=== PATIENT | male | born 1995 | race Hispanic/Latino ===

== ENCOUNTER 2019-08-04 12:48 | Emergency (ER) | payer OTHER | END 2019-08-04 14:51 | disposition home or self-care (01) | LOC: EDH 12:48 | DX: M25.511 Pain in right shoulder (principal) | CPT/HCPCS: 73030 ==

== ENCOUNTER 2020-04-23 22:34 | Emergency (ER) | payer SELFPAY ==
[2020-04-24 00:01] LABS: APPEARANCE,URINE Clear (CLEAR); BILIRUBIN,URINE Negative (NEGATIVE); COLOR,URINE Yellow (YELLOW); GLUCOSE, URINE (UA) Negative (NEGATIVE); KETONES,URINE Negative (NEGATIVE); LEUKOCYTE ESTERASE ,URINE Negative (NEGATIVE); NITRATE,URINE Negative (NEGATIVE); OCCULT BLOOD,URINE Negative (NEGATIVE); PH,URINE 5.5 (5.0-8.0); PROTEIN,URINE Negative (NEGATIVE)
[2020-04-24] MEDS ORDERED: ORPHENADRINE CITRATE 30 MG/ML ML ONE (00:33)
[2020-04-24] MEDS ORDERED: LIDOCAINE 5% TOPICAL PATCH TP ONE (00:33)
[2020-04-24] MEDS ORDERED: KETOROLAC TROMETHAMINE 60 MG/2 ML VIAL ONE (00:33)
== END 2020-04-24 01:29 | disposition home or self-care (01) ==
LOC: EDH 22:34
DX: S39.012A Strain of muscle, fascia and tendon of lower back, initial encounter (principal); M54.5 Low back pain; M62.838 Other muscle spasm; X58.XXXA Exposure to other specified factors, initial encounter; Y93.89 Activity, other specified; Y92.89 Other specified places as the place of occurrence of the external cause; Y99.8 Other external cause status
CPT/HCPCS: 81003; 96372 ×2; 99284; J1885; J2360